=== PATIENT | female | born 1985 | race American Indian/Alaskan Native ===

== ENCOUNTER 2017-06-10 21:44 | Emergency (ER) | payer SELFPAY ==
[2017-06-11 00:17] LABS: Bilirubin,Urine NEG (Negative); Blood,Urine NEG (Negative); Ketones,Urine NEG (Negative); Leukocyte Esterase,Urine TR (Negative); Mucus,Urine FEW /HPF; Nitrite,Urine NEG (Negative); Protein,Urine <15 mg/dL mg/dL (Negative)
[2017-06-11 06:37] VITALS: BP 108/67
[2017-06-11] MEDS ORDERED: TORADOL IM ONE (07:29)
--- NOTE | 2017-06-11 07:31 | Emergency Department Report ---
ED Back Pain/Injury HPI - General Chief Complaint: Back Pain/Injury Stated Complaint: LOWER BACK PAIN Time Seen by Provider: 06/11/17 07:12 Source: patient Limitations: No Limitations - History of Present Illness Initial Comments: Pt reports lower back pain x 2 months without injury. States at times pain goes into the R leg. Denies numbness, tingling, bowel/bladder dysfunction, fevers, IVDU. MD Complaint: back pain -: Gradual, month(s) (2) Similar Symptoms Previously: No Place: home Radiation: right leg Severity: moderate Severity scale (0 -10): 7 Quality: aching Consistency: constant Improves With: none Worsens With: none Context: unknown Associated Symptoms: denies other symptoms Treatments Prior to Arrival: acetaminophen - Related Data Previous Rx's Medication Instructions Recorded Last Taken Type Cyclobenzaprine [Flexeril] 10 mg PO TID PRN #15 tablet 06/11/17 Unknown Rx Naproxen [Naprosyn] 500 mg PO BID #20 tablet 06/11/17 Unknown Rx Nitrofurantoin Monohyd/M-Cryst 100 mg PO BID #14 capsule 06/11/17 Unknown Rx [Macrobid 100 mg Capsule] Allergies Allergy/AdvReac Type Severity Reaction Status Date / Time No Known Allergies Allergy Unverified 06/10/17 22:39 ED Review of Systems ROS: Stated complaint: LOWER BACK PAIN Other details as noted in HPI Comment: All other systems reviewed and negative Constitutional: denies: chills, fever Eyes: denies: eye pain, eye discharge, vision change ENT: denies: ear pain, throat pain Respiratory: denies: cough, shortness of breath, wheezing Cardiovascular: denies: chest pain, palpitations Endocrine: no symptoms reported Gastrointestinal: denies: abdominal pain, nausea, diarrhea Genitourinary: denies: urgency, dysuria, discharge Musculoskeletal: back pain. denies: joint swelling, arthralgia Skin: denies: rash, lesions Neurological: denies: headache, weakness, paresthesias Psychiatric: denies: anxiety, depression Hematological/Lymphatic: denies: easy bleeding, easy bruising ED Back Pain Physical Exam - Exam General: Vital signs noted. No distress. Alert and acting appropriately. Heart RRR, Lungs CTAB, abdomen SNTND. Pulses normal. Back/Abdomen: Yes Straight Leg Raise Pain (R), No Abdominal Tenderness, No Perithoracic Tenderness, No Perilumbar Tenderness, No Sacroiliac Tenderness, No Flank Tenderness Neuro: Yes Normal Sensation, Yes Normal DTR's, Yes Normal Gait, No Motor Weakness ED Course Vital Signs 06/10/17 06/10/17 06/11/17 22:23 22:42 06:36 Temperature 98.4 F 98.4 F Pulse Rate 73 77 65 Respiratory 18 18 16 Rate Blood Pressure 146/91 146/91 Blood Pressure 108/67 [Right] O2 Sat by Pulse 99 98 100 Oximetry - Reevaluation(s) Reevaluation #1: 06/11/17 07:29 Pt is in NAD and stable for d/c. ED Medical Decision Making - Lab Data UA shows trace leukocytes - Medical Decision Making Pt presents with sciatic pain x 2 months. UA was ordered and shows trace leukocytes so will RX short course of abx. Advise follow up with PCP or ortho for back pain. - Differential Diagnosis sciatica, back strain, uti Critical care attestation.: If time is entered above; I have spent that time in minutes in the direct care of this critically ill patient, excluding procedure time. ED Disposition Clinical Impression: Acute UTI (urinary tract infection) Lumbago with sciatica, right side Qualifiers: Chronicity: acute Back pain laterality: right Qualified Code(s): M54.41 - Lumbago with sciatica, right side Disposition: TO HOME OR SELFCARE Is pt being admited?: No Condition: Good Instructions: Sciatica (ED) Prescriptions: Cyclobenzaprine [Flexeril] 10 mg PO TID PRN #15 tablet PRN Reason: Muscle Spasm Naproxen [Naprosyn] 500 mg PO BID #20 tablet Nitrofurantoin Monohyd/M-Cryst [Macrobid 100 mg Capsule] 100 mg PO BID #14 capsule Referrals: PRIMARY CAREMD [Primary Care Provider] - 3-5 Days DWAYNE GALLAGHER MD [Staff Physician] - 3-5 Days Time of Disposition: 07:31
== END 2017-06-11 08:13 | disposition home or self-care (01) ==
LOC: ED 21:44
DX: M54.41 Lumbago with sciatica, right side (principal); N39.0 Urinary tract infection, site not specified
CPT/HCPCS: 81001; 81025; 99283; J1885; J2930